=== PATIENT | female | born 1970 | race Caucasian/White ===

== ENCOUNTER 2019-09-25 18:03 | Emergency (ER) | payer OTHER ==
--- NOTE | 2019-09-25 19:09 | PCM.DCSUM1 ---
Discharge Summary - Discharge Data Discharge Disposition: Home, Self-Care 01 Condition: Good - Referral to Home Health Primary Care Physician: PCP None - Discharge Plan Home Medications: Home Meds . [No Known Home Meds] 09/25/19 [History] - Patient Data Vitals - Most Recent: Last Vital Signs Temp 36.8 C 09/25/19 18:09 Pulse 72 09/25/19 18:09 Resp 18 09/25/19 18:09 BP 121/69 09/25/19 18:09 Pulse Ox 100 09/25/19 18:09 Weight - Most Recent: 66.678 kg
--- NOTE | 2019-09-25 19:32 | EDM.PDOC ---
ED HPI GENERAL MEDICAL PROBLEM - General Chief Complaint: Neuro Symptoms/Deficits Stated Complaint: LT HAND AND ARM TINGLING/NUMB Time Seen by Provider: 09/25/19 19:00 Source of Information: Reports: Patient History Limitations: Reports: No Limitations - History of Present Illness INITIAL COMMENTS - FREE TEXT/NARRATIVE: 48-year-old female attends the ED due to development suddenly of pain numbness and tingling in her left hand that radiated all way up to her axilla. This came on shortly after leaving work. She states the hand really wasn't exposed to any real cold environment. Her took pictures of her hand which show duskiness of the dorsal aspect of the index and fourth finger and complete white blanching of the third finger on the left hand. By the time I had seen her she still had some residual numbness and tingling but full motor power and tone in the color of the finger had returned to normal. She had good arterial pulses i.e. ulnar and radial pulses and good capillary return to all fingers. There was no axillary adenopathy or masses palpable. Weekly she has full range of motion neck and I could not demonstrate that she would have any evidence of a thoracic outlet syndrome on exam. She is outside age group of development of Raynaud's phenomenon and she may have an underlying developing connective tissue disorder is often Raynaud's can proceed a connective tissue disorder for 10-15 years before developing an illness. She has no known connective tissue disorder at this time. Onset: Today Onset Date: 09/25/19 Onset Time: 17:45 Duration: Minutes: (Into the ED within about 20 minutes development of symptoms. ) Location: Reports: Upper Extremity, Left (Blanching of the left third finger and duskiness of the left fourth and second fingers with associated numbness tingling all the way up to the left axilla.) Quality: Reports: Ache, Other Severity: Severe (Severe blanching of the left third finger noted on 4 g provided by her .) Improves with: Reports: Other (Improves spontaneously. She was shaking and to try and wake it up but never did run it under warm water) Worsens with: Reports: None Context: Reports: Other. Denies: Activity, Exercise, Lifting, Sick Contact, Trauma Associated Symptoms: Reports: Other (Paresthesias involving primarily the volar aspect of her left formal way up to the left axilla. 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 [No Known Home Meds] 09/25/19 [History] Past Medical History Other Cardiovascular History: Valve issue unsure which one Oncologic (Cancer) History: Reports: Cervix - Infectious Disease History Infectious Disease History: Reports: Chicken Pox - Past Surgical History Cardiovascular Surgical History: Reports: None Female Surgical History: Reports: Hysterectomy Social & Family History - Family History Family Medical History: Noncontributory - Tobacco Use Smoking Status *Q: Never Smoker Second Hand Smoke Exposure: No - Caffeine Use Caffeine Use: Reports: Coffee - Recreational Drug Use Recreational Drug Use: No - Living Situation & Occupation Living situation: Reports: Occupation: Employed ED ROS GENERAL - Review of Systems Review Of Systems: See Below Constitutional: Reports: No Symptoms HEENT: Reports: No Symptoms Respiratory: Reports: No Symptoms (Labs mild shortness of breath after development of left hand symptoms as mentioned above), Shortness of Breath Cardiovascular: Reports: Palpitations (Became aware of palpitations and increased numbness and tingling after the hand started to ) Endocrine: Reports: No Symptoms GI/Abdominal: Reports: No Symptoms : Reports: No Symptoms Musculoskeletal: Reports: Hand Pain (Left hand pain with numbness and tingling and blanching of the left third finger) Skin: Reports: Other (Photographs of complete blanching a whiteness of the entire left third finger and duskiness of the fourth and fifth finger) Neurological: Reports: Paresthesia (Left hand volar aspect of the forearm all way up to the left axilla.) Psychiatric: Reports: No Symptoms ED EXAM, NEURO - Physical Exam Exam: See Below General Appearance: Alert, WD/WN, Anxious, Other (Mildly anxious. Vital signs show temperature 36.8. Heart rate 72 and sinus respiratory to 18 BP 1/69 O2 sats 100% on room air.) Neck: Normal Inspection, Supple, Non-Tender, Full Range of Motion, Other (No palpable deformities to suggest cervical ribs. Down on her hands did not exacerbate or re-create the symptoms that would be suggestive of thoracic outlet syndrome.). No: Lymphadenopathy (L), Lymphadenopathy (R) Respiratory/Chest: No Respiratory Distress, Lungs Clear, Normal Breath Sounds, No Accessory Muscle Use Cardiovascular: Normal Peripheral Pulses, Regular Rate, Rhythm, No Edema, No Gallop, No Murmur, No Rub Neurological: Alert, Normal Dorsiflexion, CN II-XII Intact, Normal Gait, Normal Reflexes, Oriented x 3 DTR: 3+: Bicep (R), Bicep (L) (Also 3+ at the brachioradialis bilaterally.) Extremities: Other (Present the color has returned to normal and her left hand. She has full range of motion of the fingers. There is good capillary return within 3 seconds.) Psychiatric: Normal Affect ( She has good ulnar and radial pulses to her wrist.) , Normal Mood Skin Exam: Warm, Dry, Intact, Normal Color, No Rash Course - Vital Signs Last Recorded V/S: Last Vital Signs Temp 36.8 C 09/25/19 18:09 Pulse 72 09/25/19 18:09 Resp 18 09/25/19 18:09 BP 121/69 09/25/19 18:09 Pulse Ox 100 09/25/19 18:09 - Radiology Interpretation Free Text/Narrative:: 48-year-old female presents to the ED with acute onset of pain numbness and tingling in her left velasquez with blanching of the left third finger and duskiness of the left fourth and second fingers. This lasted approximately 20 minutes before it dissipated on its own. She was shaking a to wake it up but did not recommend under any warm water to relieve the discomfort. It is happened before but never to this severity. Her took pictures of her hand at the time she developed the symptoms and that was very helpful in terms that it did reveal complete white blanching of the entire left third finger. At the time of my exam symptoms had resolved but some mild numbness and tingling. The fingers had normal color with good capillary return. Diagnosis is Raynaud's phenomenon. She has no known known connective tissue disorder at this time. She has been in the past. She. Resents a little outside the normal age group to develop Raynaud's disease and therefore deserves investigation for underlying connective tissue disorder such as rheumatoid arthritis lupus etc. She also deserves a CT of her cervical spine to make sure there is no thoracic outlet syndrome. By history the symptoms may have been going on for off and on for the last 4 years but seemed to becoming more frequent. I suggested follow-up with Dr. Brigido Bardales as an outpatient to have investigations completed. At this time no treatment was offered. Departure - Departure Time of Disposition: 19:26 Disposition: Home, Self-Care 01 Condition: Fair Clinical Impression: Raynaud's disease, idiopathic Qualifiers: Raynaud?s-associated gangrene presence: without gangrene Qualified Code(s): I73.00 - Raynaud's syndrome without gangrene - Discharge Information *PRESCRIPTION DRUG MONITORING PROGRAM REVIEWED*: Not Applicable *COPY OF PRESCRIPTION DRUG MONITORING REPORT IN PATIENT MASSIEL: Not Applicable Instructions: Raynaud Phenomenon Referrals: PCP,None [Primary Care Provider] - Forms: ED Department Discharge Additional Instructions: Evaluation in the ER this evening in regards to sudden onset of his tingling pain and obvious discoloration of fingers of your left hand this afternoon. No previous exposure to cold environment. She is provided revealed complete vasospasm involving the left third finger causing it to simón in turn completely white. The second and fourth fingers were darker bluish in color indicating poor blood supply out of the finger or venous congestion. Associated numbness and tingling up to the left eczema. The pictures provided really helped cleanse the diagnosis of Raynaud's phenomena and or Raynaud's disease. At this time there is no specific cause identified for this. Further investigation is often related to developing connective tissue disorder such as rheumatoid arthritis or lupus erythematosus etc. The time of examination the symptoms are resolved other than some mild numbness and tingling but the vasospasm in the fingers had completely gone away. Signs are otherwise normal. Suggest follow-up with an data analytics specialist Dr.Brian Howard to have further studies carried out to rule out associated potential connective tissue disorders and likely a CT of your cervical spine to rule out any cervical ribs that could cause thoracic outlet syndrome. This is a treatable condition with medications that help dilate vessels if required. Appendix how often it happens. Please call [phone] to arrange an appointment to see Dr. Bardales in this regard. It is really important to try and keep the hand is warm as possible was precipitation to cold environment will often precipitate Raynaud's phenomenon. Sepsis Event Note - Evaluation Sepsis Screening Result: No Definite Risk - Focused Exam Vital Signs: Vital Signs Temp Pulse Resp BP Pulse Ox 09/25/19 18:09 36.8 C 72 18 121/69 100 Date Exam was Performed: 09/25/19 Time Exam was Performed: 19:55
== END 2019-09-25 19:49 | disposition home or self-care (01) ==
LOC: JD.ED 18:03
DX: I73.00 Raynaud's syndrome without gangrene (principal); Z91.013 Allergy to seafood; Z91.018 Allergy to other foods
CPT/HCPCS: 99282; 99284

== ENCOUNTER 2019-12-12 09:52 | Emergency (ER) | payer OTHER ==
[2019-12-12] MEDS ORDERED: Sodium Chloride 0.9% 10 ML Syringe FLUSH PRN (10:18)
--- NOTE | 2019-12-12 11:54 | EDM.PDOC ---
ED HPI GENERAL MEDICAL PROBLEM - General Chief Complaint: Cardiovascular Problem Stated Complaint: PALPATATIONS Time Seen by Provider: 12/12/19 10:04 Source of Information: Reports: Patient History Limitations: Reports: No Limitations - History of Present Illness INITIAL COMMENTS - FREE TEXT/NARRATIVE: The patient presents with chest pain, shortness of breath and palpitations. This all started on Sunday. She says it will come and go. She will feel like her heart thumping and racing at times and then has chest pain and shortness of breath with it. She has chills but no fever or cough. She has no abdominal pain, nausea or vomiting. She did have an issue with a heart valve a few years ago. She did not go back and have it checked. She moved. She has no swelling or pain in her legs. She has no history of DVT or PE. She does not smoke. Onset: Gradual Duration: Week(s): Location: Reports: Chest Quality: Reports: Pressure Severity: Moderate Improves with: Reports: None Worsens with: Reports: None Associated Symptoms: Reports: Chest Pain, Shortness of Breath. Denies: Cough, Fever/Chills, Headaches, Nausea/Vomiting - Related Data Allergies Allergy/AdvReac Type Severity Reaction Status Date / Time Pork/Porcine Containing Allergy Difficulty Verified 12/12/19 10:01 Products Swallowing shellfish derived Allergy Hives Verified 12/12/19 10:01 Home Meds: Home Meds Topiramate 25 mg PO DAILY 12/12/19 [History] Past Medical History HEENT History: Reports: Impaired Vision Other HEENT History: wears eyeglasses. Other Cardiovascular History: Valve issue unsure which one--states heart valve wasn't closing properly, moved to [place] and did not finish testing. 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 - Infectious Disease History Infectious Disease History: Reports: Chicken Pox - Past Surgical History Female Surgical History: Reports: Hysterectomy Other Female Surgeries/Procedures: partial hyst. Social & Family History - Family History Family Medical History: Noncontributory - Tobacco Use Smoking Status *Q: Never Smoker Second Hand Smoke Exposure: No - Caffeine Use Caffeine Use: Reports: Coffee - Recreational Drug Use Recreational Drug Use: No - Living Situation & Occupation Living situation: Reports: Occupation: Employed ED ROS GENERAL - Review of Systems Review Of Systems: See Below Constitutional: Reports: No Symptoms HEENT: Reports: No Symptoms Respiratory: Reports: Shortness of Breath. Denies: Cough Cardiovascular: Reports: Chest Pain Endocrine: Reports: No Symptoms GI/Abdominal: Reports: No Symptoms : Reports: No Symptoms Musculoskeletal: Reports: No Symptoms ED EXAM, GENERAL - Physical Exam Exam: See Below Exam Limited By: No Limitations General Appearance: Alert, No Apparent Distress Ears: Normal External Exam Nose: Normal Inspection Head: Atraumatic, Normocephalic Neck: Normal Inspection Respiratory/Chest: No Respiratory Distress, Lungs Clear, Normal Breath Sounds Cardiovascular: Regular Rate, Rhythm, No Edema, No Murmur GI/Abdominal: Soft, Non-Tender, No Organomegaly, No Mass Back Exam: Normal Inspection Extremities: Normal Inspection EKG INTERPRETATION EKG Date: 12/12/19 Time: 09:55 Rhythm: NSR Rate (Beats/Min): 84 [place]: Normal P-Wave: Present QRS: Normal ST-T: Other (flattened T waves in the inferior leads) QT: Normal Course - Vital Signs Last Recorded V/S: Last Vital Signs Temp 98.0 F 12/12/19 09:55 Pulse 80 12/12/19 09:55 Resp 16 12/12/19 09:55 BP 105/68 12/12/19 09:55 Pulse Ox 100 12/12/19 09:55 - Orders/Labs/Meds Orders: Active Orders 24 hr Category Date Time Status Cardiac Monitoring [RC] . DIRECTED Care 12/12/19 10:18 Active EKG Documentation Completion [RC] STAT Care 12/12/19 10:20 Active Holter Monitor 48 Hours [RC] .PRN Care 12/12/19 13:40 Ordered Peripheral IV Care [RC] . DIRECTED Care 12/12/19 10:20 Active Sodium Chloride 0.9% [Normal Saline] 100 ml Med 12/12/19 12:30 Active IV ASDIRECTED Sodium Chloride 0.9% [Saline Flush] Med 12/12/19 10:18 Active 10 ml FLUSH ASDIRECTED PRN Peripheral IV Insertion Adult [OM.PC] Stat Oth 05/01/20 10:18 Ordered Medication Orders Sodium Chloride (Normal Saline) 100 mls @ 60 mls/hr IV ASDIRECTED JOSE Last Admin: 12/12/19 12:54 Dose: 60 mls/hr Sodium Chloride (Saline Flush) 10 ml FLUSH ASDIRECTED PRN PRN Reason: Keep Vein Open Last Admin: 12/12/19 11:02 Dose: 10 ml Labs: Laboratory Tests 12/12/19 12/12/19 12/12/19 Range/Units 11:00 11:00 11:00 WBC 4.78 (3.98-10.04) K/mm3 RBC 4.42 (3.98-5.22) M/mm3 Hgb 13.6 (11.2-15.7) gm/dl Hct 42.0 (34.1-44.9) % MCV 95.0 H (79.4-94.8) fl MCH 30.8 (25.6-32.2) pg MCHC 32.4 (32.2-35.5) g/dl RDW Std Deviation 43.0 (36.4-46.3) fL Plt Count 227 (182-369) K/mm3 MPV 10.3 (9.4-12.3) fl Neut % (Auto) 72.2 H (34.0-71.1) % Lymph % (Auto) 19.2 L (19.3-51.7) % [place] % (Auto) 8.2 (4.7-12.5) % Eos % (Auto) 0 L (0.7-5.8) Baso % (Auto) 0.4 (0.1-1.2) % Neut # (Auto) 3.45 (1.56-6.13) K/mm3 Lymph # (Auto) 0.92 L (1.18-3.74) K/mm3 [place] # (Auto) 0.39 H (0.24-0.36) K/mm3 Eos # (Auto) 0.00 L (0.04-0.36) K/mm3 Baso # (Auto) 0.02 (0.01-0.08) K/mm3 D-Dimer, Quantitative 2.41 H (0.19-0.50) mg/L Sodium 142 (136-145) mEq/L Potassium 4.0 (3.5-5.1) mEq/L Chloride 106 (98-107) mEq/L Carbon Dioxide 29 (21-32) mEq/L Anion Gap 11.0 (5-15) BUN 13 (7-18) mg/dL Creatinine 0.9 (0.55-1.02) mg/dL Est Cr Clr Drug Dosing 68.79 mL/min Estimated GFR (MDRD) > 60 (>60) mL/min BUN/Creatinine Ratio 14.4 (14-18) Glucose 103 (74-106) mg/dL Calcium 9.2 (8.5-10.1) mg/dL Total Bilirubin 0.6 (0.2-1.0) mg/dL AST 18 (15-37) U/L ALT 23 (14-59) U/L Alkaline Phosphatase 54 (46-116) U/L Troponin I < 0.017 (0.00-0.056) ng/mL Total Protein 7.8 (6.4-8.2) g/dl Albumin 3.6 (3.4-5.0) g/dl Globulin 4.2 gm/dL Albumin/Globulin Ratio 0.9 L (1-2) Free T4 (0.76-1.46) ng/dL TSH 3rd Generation 5.424 H (0.358-3.74) uIU/mL 12/12/19 Range/Units 11:00 WBC (3.98-10.04) K/mm3 RBC (3.98-5.22) M/mm3 Hgb (11.2-15.7) gm/dl Hct (34.1-44.9) % MCV (79.4-94.8) fl MCH (25.6-32.2) pg MCHC (32.2-35.5) g/dl RDW Std Deviation (36.4-46.3) fL Plt Count (182-369) K/mm3 MPV (9.4-12.3) fl Neut % (Auto) (34.0-71.1) % Lymph % (Auto) (19.3-51.7) % [place] % (Auto) (4.7-12.5) % Eos % (Auto) (0.7-5.8) Baso % (Auto) (0.1-1.2) % Neut # (Auto) (1.56-6.13) K/mm3 Lymph # (Auto) (1.18-3.74) K/mm3 [place] # (Auto) (0.24-0.36) K/mm3 Eos # (Auto) (0.04-0.36) K/mm3 Baso # (Auto) (0.01-0.08) K/mm3 D-Dimer, Quantitative (0.19-0.50) mg/L Sodium (136-145) mEq/L Potassium (3.5-5.1) mEq/L Chloride (98-107) mEq/L Carbon Dioxide (21-32) mEq/L Anion Gap (5-15) BUN (7-18) mg/dL Creatinine (0.55-1.02) mg/dL Est Cr Clr Drug Dosing mL/min Estimated GFR (MDRD) (>60) mL/min BUN/Creatinine Ratio (14-18) Glucose (74-106) mg/dL Calcium (8.5-10.1) mg/dL Total Bilirubin (0.2-1.0) mg/dL AST (15-37) U/L ALT (14-59) U/L Alkaline Phosphatase (46-116) U/L Troponin I (0.00-0.056) ng/mL Total Protein (6.4-8.2) g/dl Albumin (3.4-5.0) g/dl Globulin gm/dL Albumin/Globulin Ratio (1-2) Free T4 0.78 (0.76-1.46) ng/dL TSH 3rd Generation (0.358-3.74) uIU/mL Meds: Medications Generic Name Dose Route Start Last Admin Trade Name Freq PRN Reason Stop Dose Admin Sodium Chloride 100 mls @ 60 mls/hr 12/12/19 12:30 12/12/19 12:54 Normal Saline IV 60 mls/hr ASDIRECTED JOSE Administration Sodium Chloride 10 ml 12/12/19 10:18 12/12/19 11:02 Saline Flush FLUSH 10 ml ASDIRECTED PRN Administration Keep Vein Open Discontinued Medications Generic Name Dose Route Start Last Admin Trade Name Freq PRN Reason Stop Dose Admin Diphenhydramine HCl 50 mg 12/12/19 12:20 12/12/19 12:25 Benadryl IVPUSH 12/12/19 12:21 50 mg ONETIME ONE Administration Iopamidol 100 ml 12/12/19 12:21 12/12/19 12:51 Isovue-370 (76%) IVPUSH 12/12/19 12:22 100 ml ONETIME ONE Administration Sodium Chloride 10 ml 12/12/19 12:21 12/12/19 12:54 Saline Flush FLUSH 12/12/19 12:22 10 ml ONETIME ONE Administration - Re-Assessments/Exams Free Text/Narrative Re-Assessment/Exam: 12/12/19 11:54 I ordered an IV saline lock, EKG, CXR, and labs. Her EKG shows a NSR with no acute changes. Her CXR looks good. Her CBC looks good. Her D-dimer was elevated at 2.41. I will ordered a CT angio of her chest. 12/12/19 12:12 Her CMP looks good. Her troponin is negative. Her TSH is slightly elevated at 5.424. I have ordered a free T4 and I am waiting for the CT angio. 12/12/19 13:[address] shows no PE. I am not sure what is causing her symptoms at this time. I will put a 48 hour holter monitor on and have her follow up with Dr Hobson. 12/12/19 13:42 Departure - Departure Time of Disposition: 13:45 Disposition: Home, Self-Care 01 Condition: Good Clinical Impression: Palpitations Referrals: Brigido Hobson MD [Primary Care Provider] - 1 Week Forms: ED Department Discharge Additional Instructions: Wear the holter monitor for 48 hours. Follow up with Dr Hobson. Please return if you are worse. Sepsis Event Note - Evaluation Sepsis Screening Result: No Definite Risk - Focused Exam Vital Signs: Vital Signs Temp Pulse Resp BP Pulse Ox 12/12/19 09:55 98.0 F 80 16 105/68 100 Date Exam was Performed: 12/12/19 Time Exam was Performed: 13:41 - My Orders Last 24 Hours: My Active Orders 12/12/19 10:18 Cardiac Monitoring [RC] . DIRECTED Sodium Chloride 0.9% [Saline Flush] 10 ml FLUSH ASDIRECTED PRN Peripheral IV Insertion Adult [OM.PC] Stat 12/12/19 10:20 EKG Documentation Completion [RC] STAT Peripheral IV Care [RC] . DIRECTED 12/12/19 12:30 Sodium Chloride 0.9% [Normal Saline] 100 ml IV ASDIRECTED 12/12/19 13:40 Holter Monitor 48 Hours [RC] .PRN - Assessment/Plan Last 24 Hours: My Active Orders 12/12/19 10:18 Cardiac Monitoring [RC] . DIRECTED Sodium Chloride 0.9% [Saline Flush] 10 ml FLUSH ASDIRECTED PRN Peripheral IV Insertion Adult [OM.PC] Stat 12/12/19 10:20 EKG Documentation Completion [RC] STAT Peripheral IV Care [RC] . DIRECTED 12/12/19 12:30 Sodium Chloride 0.9% [Normal Saline] 100 ml IV ASDIRECTED 12/12/19 13:40 Holter Monitor 48 Hours [RC] .PRN
--- NOTE | 2019-12-12 12:01 | CR ---
Chest: 2 views of the chest were obtained. Comparison: Previous chest x-ray of 10/06/19. Heart size and mediastinum are normal. Lungs are clear with no acute parenchymal change. Bony structures show slight scoliosis within the spine with minimal endplate spurring. Impression: 1. Nothing acute is seen on 2 view chest x-ray. Diagnostic code #2 This report was dictated in MDT
[2019-12-12] MEDS ORDERED: diphenhydrAMINE 50 MG/ML SDV IVPUSH ONE (12:20)
[2019-12-12] MEDS ORDERED: Iopamidol 755 Mg/ML 100 ML Bottle IVPUSH ONE (12:21)
[2019-12-12] MEDS ORDERED: Sodium Chloride 0.9% 100 ML IV SCH (12:30)
[2019-12-12] MEDS: Sodium Chloride 0.9% 10 ML Syringe FLUSH ONE ×2 (12:51→12:54)
--- NOTE | 2019-12-12 13:06 | CT ---
CT chest Technique: Multiple axial sections through the chest were obtained. Intravenous contrast was utilized. Study performed as a pulmonary angiogram protocol. Findings: Pulmonary arteries are well opacified. No filling defects are seen to indicate pulmonary embolism. Mediastinum shows no adenopathy. Aorta shows no adenopathy. No pericardial thickening is seen. Visualized upper abdominal structures shows no discrete abnormality. Lung window settings were reviewed. No acute parenchymal change is appreciated. No pleural effusions or pneumothorax is seen. Bone window settings were reviewed which show no acute osseous finding. Impression: 1. No findings of pulmonary embolism. 2. Nothing acute is appreciated on CT study of the chest. Diagnostic code #1 This report was dictated in MDT
== END 2019-12-12 14:20 | disposition home or self-care (01) ==
LOC: JD.ED 09:52
DX: R00.2 Palpitations (principal); G43.909 Migraine, unspecified, not intractable, without status migrainosus; Z91.013 Allergy to seafood; Z79.899 Other long term (current) drug therapy; Z90.710 Acquired absence of both cervix and uterus
CPT/HCPCS: 36415; 71046; 71275; 80053; 84439; 84443; 84484; 85025; 85379; 93005; 93225; 93226; 96361; 96374; 99285; J1200; J7050; Q9967; 93010; 99284